=== PATIENT | female | born 1955 | race Caucasian/White ===

== ENCOUNTER 2017-03-18 16:30 | Emergency (ER) | payer OTHER ==
[~2017-03-18] VITALS: Wt 71.0 kg
[2017-03-18] MEDS ORDERED: SOD CHLORIDE 0.9% 1,000 ML IV STA (20:12)
[2017-03-18 20:38] LABS: BASOPHILS % 0.6 % (0.0-2.0); EOSINOPHILS # 0.2 10^3/ul (0.0-0.5); EOSINOPHILS % 3.3 % (0.0-7.0); HEMATOCRIT 37.6 % (37.0-47.0); HEMOGLOBIN 12.7 g/dl (12.0-16.0); LYMPHOCYTES # 2.9 10^3/ul (0.8-2.9); LYMPHOCYTES % 42.2 % (15.0-51.0); MEAN CORPUSCULAR HGB CONC 33.8 g/dl (32.0-37.0); MEAN CORPUSCULAR VOLUME 91.7 fl (82.0-101.0); MEAN PLATELET VOLUME 10.1 fl (7.4-10.4); MONOCYTE # 0.6 10^3/ul (0.3-0.9); NEUTROPHIL # 3.2 10^3/ul (1.6-7.5); NEUTROPHILS % 45.6 % (39.0-77.0); PLATELET COUNT 337 10^3/UL (140-415); RED CELL DISTRIBUTION WIDTH 12.9 % (11.5-14.5)
[2017-03-18] MEDS ORDERED: OMEP40CA6 PO (20:41)
[2017-03-18] MEDS ORDERED: OMEP20CA16 PO (20:43)
[2017-03-18 20:44] LABS: ADD UMIC YES; UR ASCORBIC ACID 20 mg/dL (NEGATIVE); UR BILIRUBIN (Dip) NEGATIVE (NEGATIVE); UR BLOOD (Dip) NEGATIVE (NEGATIVE); UR CLARITY CLEAR (CLEAR); UR COLOR YELLOW (YELLOW); UR GLUCOSE (Dip) NEGATIVE (NEGATIVE); UR KETONES (Dip) NEGATIVE (NEGATIVE); UR LEUKOCYTE ESTERASE (Dip) TRACE Leu/ul (NEGATIVE); UR MUCUS FEW /HPF (NONE SEEN); UR NITRITE (Dip) NEGATIVE (NEGATIVE); UR RBC 1 /HPF (0-5); UR SPECIFIC GRAVITY (Dip) 1.018 (1.003-1.030); UR TOTAL PROTEIN (Dip) NEGATIVE (NEGATIVE); UR UROBILINOGEN (Dip) NEGATIVE (NEGATIVE)
[2017-03-18] MEDS ORDERED: MULT1TAB6 PO (20:44)
--- NOTE | 2017-03-18 21:01 | ERA ---
ER Documentation Chief Complaint Date/Time DATE: 03/18/17 TIME: 21:00 Chief Complaint PELVIC PAIN X 3 DAYS HPI This is a 61-year-old female with a history of GERD on Prilosec who is presenting with 3 days of suprapubic discomfort, dysuria and increased urinary frequency. Patient has no other complaints. She has had no fever or chills. She has had no nausea or vomiting. She has had no headache or vision changes. She has had no chest pain or trouble breathing. She has had no other abdominal pain. She has had no changes to bowel movements. ROS All systems reviewed and are negative except as per history of present illness. Medications Home Meds Active Scripts Cephalexin* (Cephalexin* Susp) 250 Mg/5 Ml Susp.recon, 500 MG PO Q12 for 7 Days , #1 BOTTLE Prov:KT RIVAS MD 03/18/17 Baclofen* (Baclofen*) 10 Mg Tablet, 10 MG PO TID for spasm for 7 Days, TAB Prov:KT RIVAS MD 03/18/17 Reported Medications Folic Acid/Mv,Fe,Other Min (Centrum Complete Multivit Tab) 1 Each Tablet, 1 EACH PO DAILY, TAB 03/18/17 Omeprazole* (Omeprazole*) 20 Mg Capsule., 20 MG PO DAILY, #30 CAP 03/18/17 Discontinued Reported Medications Omeprazole* (Omeprazole*) 40 Mg Capsule.dr, 40 MG PO DAILY, #30 CAP 03/18/17 Allergies Allergies: Coded Allergies: No Known Allergy (Unverified , 03/18/17) PMhx/Soc Medical and Surgical Hx: pt denies Medical Hx History of Surgery: Yes (CHOLECYSTECTOMY, C SECTION) Anesthesia Reaction: No Hx Neurological Disorder: No Hx Respiratory Disorders: No Hx Cardiac Disorders: No Hx Psychiatric Problems: No Hx Miscellaneous Medical Probl: No Hx Alcohol Use: No Hx Substance Use: No Hx Tobacco Use: No Smoking Status: Never smoker Physical Exam Vitals Vital Signs Date Time Temp Pulse Resp B/P Pulse Ox O2 Delivery O2 Flow Rate FiO2 03/18/17 23:07 98.0 70 18 114/74 100 Room Air 03/18/17 22:33 98.0 78 18 114/74 97 Room Air 03/18/17 20:10 98.0 65 18 138/80 99 Room Air 03/18/17 16:39 98.0 78 18 143/74 99 Physical Exam Const: No apparent distress, well-developed, well-nourished Head: Atraumatic Eyes: Normal Conjunctiva ENT: Normal External Ears, Nose and Mouth. Neck: Full range of motion..~ No meningismus. Resp: Clear to auscultation bilaterally Cardio: Regular rate and rhythm, no murmurs Abd: Soft, non distended. Normal bowel sounds. Suprapubic tenderness Skin: No petechiae or rashes Back: No midline or flank tenderness Ext: No cyanosis, or edema Neur: Awake and alert, normal sensation, normal strength Psych: Normal Mood and Affect Result Diagram: 03/18/17201903/18/172019 Results 24 hrs Laboratory Tests Test 03/18/17 20:20 White Blood Count 7.010^3/ul Red Blood Count 4.1010^6/ul Hemoglobin 12.7g/dl Hematocrit 37.6% Mean Corpuscular Volume 91.7fl Mean Corpuscular Hemoglobin 31.0pg Mean Corpuscular Hemoglobin Concent 33.8g/dl Red Cell Distribution Width 12.9% Platelet Count 15270^3/UL Mean Platelet Volume 10.1fl Neutrophils % 45.6% Lymphocytes % 42.2% Monocytes % 8.0% Eosinophils % 3.3% Basophils % 0.6% Nucleated Red Blood Cells % 0.0/100WBC Neutrophils # 3.210^3/ul Lymphocytes # 2.910^3/ul Monocytes # 0.610^3/ul Eosinophils # 0.210^3/ul Basophils # 0.010^3/ul Nucleated Red Blood Cells # 0.010^3/ul Urine Color YELLOW Urine Clarity CLEAR Urine pH 6.0 Urine Specific [place] 1.018 Urine Ketones NEGATIVEmg/dL Urine Nitrite NEGATIVEmg/dL Urine Bilirubin NEGATIVEmg/dL Urine Urobilinogen NEGATIVEmg/dL Urine Leukocyte Esterase TRACELeu/ul Urine Microscopic RBC 1/HPF Urine Microscopic WBC 1/HPF Urine Mucus FEW/HPF Urine Hemoglobin NEGATIVEmg/dL Urine Glucose NEGATIVEmg/dL Urine Total Protein NEGATIVEmg/dl Sodium Level 143mmol/L Potassium Level 3.6mmol/L Chloride Level 103mmol/L Carbon Dioxide Level 31mmol/L Anion Gap 13 Blood Urea Nitrogen 11mg/dl Creatinine 0.65mg/dl Glucose Level 104mg/dl Calcium Level 9.5mg/dl Total Bilirubin 0.1mg/dl Direct Bilirubin 0.00mg/dl Indirect Bilirubin 0.1mg/dl Aspartate Amino Transf (AST/SGOT) 39IU/L Alanine Aminotransferase (ALT/SGPT) 38IU/L Alkaline Phosphatase 99IU/L Total Protein 8.8g/dl Albumin 4.5g/dl Globulin 4.30g/dl Albumin/Globulin Ratio 1.04 Lipase 170U/L Current Medications Medications (Trade) Dose Ordered Sig/Ponce Route PRN Reason Start Time Stop Time Status Last Admin Dose Admin Sodium Chloride (NS) 1,000 ml @ 1,000 mls/hr Q1H STAT IV 03/18/17 20:12 03/18/17 21:11 DC 03/18/17 20:24 Procedures/MDM MDM Patient's presentation warrants further investigation. The patient will have an abdominal workup performed, my suspicion is high for urinary tract infection given her isolated symptoms. The patient's vital signs are unremarkable, which is reassuring LABS The patient's blood work was obtained and reviewed. The patient seemed shows no leukocytosis or left shift. The patient is afebrile, and I do not suspect a systemic infection. The patient is not anemic today. The patient's platelet count is unremarkable. The patient's CMP shows no signs of metabolic or electrolyte abnormality. The patient has normal renal and hepatic function testing. The patient's urinalysis was positive for leukocyte esterase and white cells. TREATMENT/DISPOSITION The patient's urinalysis did not demonstrate an obvious urinary tract infection. That said, her symptoms are consistent with a urinary tract infection and I intend to treat as such. The patient will be given a prescription for antibiotics. There is also a possibility of bladder spasm. The patient may trial baclofen at home as well. The patient was otherwise stable and I feel that she may be reevaluated in 2-3 days by her primary care physician. The patient stable for discharge. She will be given precautions to which to return to the emergency department. Departure Diagnosis: Primary Impression: UTI (urinary tract infection) Qualified Code: N39.0 - Urinary tract infection without hematuria, site unspecified Additional Impression: Bladder spasm Condition: Stable KT RIVAS MD Mar 18, 2017 21:01
[2017-03-18 21:06] LABS: ALBUMIN 4.5 g/dl (3.3-4.9); ALBUMIN/GLOBULIN RATIO 1.04; BILIRUBIN,INDIRECT 0.1 mg/dl (0-1.1); BILIRUBIN,TOTAL 0.1 mg/dl (0.2-1.3); CALCIUM 9.5 mg/dl (8.4-10.2); CREATININE 0.65 mg/dl (0.44-1.00); POTASSIUM 3.6 mmol/L (3.5-5.1); TOTAL PROTEIN 8.8 g/dl (6.1-8.1)
[2017-03-18] MEDS ORDERED: CEPH250S33 PO (22:57)
[2017-03-18] MEDS ORDERED: BACL10TA PO (22:57)
[2017-03-18 23:07] VITALS: BP 114/74; PULSE 70; RESP 18; TEMP 98
== END 2017-03-18 22:59 | disposition home or self-care (01) ==
LOC: E/R 16:30
DX: N39.0 Urinary tract infection, site not specified (principal); N32.89 Other specified disorders of bladder
CPT/HCPCS: 36415; 80053; 81001; 83690; 85025; J7030; Z7502

== ENCOUNTER 2018-04-06 12:50 | Day surgery (SDC) | END 2018-04-06 16:42 | disposition home or self-care (01) ==